=== PATIENT | female | born 1935 | race Caucasian/White ===

== ENCOUNTER 2016-08-02 15:27 | Emergency (ER) | payer OTHER ==
[~2016-08-02] VITALS: Ht 157.5 cm; Wt 86.8 kg
[~2016-08-02 15:27] MED LIST: CLOBETASOL PROP50 ML TP; CRESTOR10 MG PO; Colace PO; DESYREL12.5 MG PO; JANUVIA100 MG PO; NAVANE5 MG PO; NEXIUM40 MG PO; PERCOCET 5/31 TABLET PO; PREDNISONE20 MG PO; PROTONIX40 MG PO; STOOL SOFTENER1 EAC2 PO; TRAZODONE HCL50 MG PO; TYLENOL REGULA325 MG PO; ZOCOR40 MG PO; [UNRECOGNIZED DRUG - OTHER] PO
[2016-08-02 18:15] LABS: HEMATOCRIT 36.5 % (36.0-46.0); MCH 29.8 PG (29.0-34.0); MCHC 32.1 G/DL (30.0-36.0); MCV 92.9 FL (83-99); MEAN PLAT.VOLUME 9.6 uM^3 (9.5-12.4); PLATELET COUNT 306 K/uL (156-360); RBC DIS.WIDTH-CV 14.7 % (11.8-14.6); RBC DIS.WIDTH-SD 47.9 % (39-53); RED BLOOD COUNT 3.93 M/uL (3.80-5.20); WHITE BLOOD COUNT 14.4 K/uL (4.1-10.2)
[2016-08-02 18:30] LABS: CHLORIDE 107 mEq/L (99-109); POTASSIUM 3.8 mEq/L (3.7-5.4); SODIUM 141 mEq/L (136-147)
[2016-08-02 18:32] LABS: GLUCOSE 129 mg/dL (70-99)
[2016-08-02 18:33] LABS: ANION GAP 11 MEQ/L (2-14)
[2016-08-02 18:34] LABS: TOTAL BILIRUBIN 0.2 mg/dL (0.0-1.0)
[2016-08-02 18:36] LABS: ALKALINE PHOSPHATASE 89 IU/L (3-129); GFR ESTIMATE (CALCULATED) 57 mL/min/
[2016-08-02 18:37] LABS: UREA NITROGEN (BUN) 13 mg/dL (9-23)
[2016-08-02 18:40] LABS: TROP-I INTERPRETATION NEGATIVE; TROPONIN-I < 0.01 ng/mL (0.0-0.30)
[2016-08-02 19:03] LABS: ADD MIUA? YES; BILIRUBIN NEGATIVE; BLOOD TRACE; COLOR YELLOW ((YELLOW)); GLUCOSE (STRIP) NEGATIVE; KETONES NEGATIVE; LEUKOCYTES TRACE; NITRITE NEGATIVE; PH, URINE 6.5 (5-8); PROTEIN (STRIP) NEGATIVE; SPECIFIC GRAVITY 1.013 (1.000-1.030); UROBILINOGEN 0.2 MG/DL (0.2-1.0)
[2016-08-02 19:29] LABS: POINT-OF-CARE METER ID UU13113800
[2016-08-02 19:35] LABS: BACTERIA RARE; CASTS NONE SEEN /LPF; CRYSTALS NONE SEEN; EPITHELIAL CELLS NONE SEEN; MUCUS NONE SEEN; RED BLOOD CELLS 0-5 /HPF (0-5); UCUL ADDED? NO; WHITE BLOOD CELLS 0-5 /HPF (0-5)
[2016-08-02] MEDS ORDERED: ZOFRAN4 MG PO (20:51)
[2016-08-02 21:11] VITALS: BP 172/89
== END 2016-08-02 21:12 | disposition home or self-care (01) ==
LOC: EME 15:27
PROVIDERS: Physician Assistant
DX: R10.13 Epigastric pain (principal); R31.9 Hematuria, unspecified; E11.9 Type 2 diabetes mellitus without complications; E78.5 Hyperlipidemia, unspecified; K21.9 Gastro-esophageal reflux disease without esophagitis; M35.3 Polymyalgia rheumatica; C90.00 Multiple myeloma not having achieved remission; Z85.830 Personal history of malignant neoplasm of bone; Z85.42 Personal history of malignant neoplasm of other parts of uterus; Z87.891 Personal history of nicotine dependence
CPT/HCPCS: 80053; 81003; 82948; 84484; 85027; 93005; 99281; 99285; J2405

== ENCOUNTER 2016-08-06 10:08 | Emergency (ER) | payer OTHER ==
[~2016-08-06] VITALS: Ht 157.5 cm; Wt 84.3 kg
[~2016-08-06 10:08] MED LIST changes: +ZOFRAN4 MG PO
[2016-08-06 11:09] LABS: EOSINOPHIL (%) 0 % (0-5); HEMATOCRIT 40.4 % (36.0-46.0); IMMATURE GRANULOCYTE (%) 0.3 % (0.0-0.7); IMMATURE GRANULOCYTE COUNT 0.6 K/uL; LYMPHOCYTE COUNT 0.7 K/uL (1.0-2.8); MCH 29.8 PG (29.0-34.0); MCHC 32.4 G/DL (30.0-36.0); MONOCYTE (%) 4.2 % (3-12); MONOCYTE COUNT 0.8 K/uL (0-0.8); NEUTROPHIL (%) 91.6 % (45-76); NEUTROPHIL COUNT 17.2 K/uL (1.8-6.4); PLATELET COUNT 235 K/uL (156-360); RBC DIS.WIDTH-CV 15.2 % (11.8-14.6); RBC DIS.WIDTH-SD 49.7 % (39-53); RED BLOOD COUNT 4.39 M/uL (3.80-5.20); WHITE BLOOD COUNT 18.8 K/uL (4.1-10.2)
[2016-08-06] MEDS ORDERED: NEXIUM20 MG PO (11:10)
[2016-08-06] MEDS ORDERED: ZOCOR40 MG PO (11:10)
[2016-08-06] MEDS ORDERED: TRADJENTA5 MG PO (11:10)
[2016-08-06] MEDS ORDERED: VITAMIN D31000 UNI2 PO (11:11)
[2016-08-06] MEDS ORDERED: VITAMIN B122500 MCG PO (11:11)
[2016-08-06] MEDS ORDERED: PREDNISONE1 MG PO (11:12)
[2016-08-06 11:16] LABS: CHLORIDE 102 mEq/L (99-109); POTASSIUM 3.5 mEq/L (3.7-5.4); SODIUM 139 mEq/L (136-147)
[2016-08-06 11:17] LABS: INTER. NORMALIZED RATIO 1.2; PROTHROMBIN TIME 12.5 (9.2-11.2); PTT 29.6 (25-32)
[2016-08-06 11:18] LABS: GLUCOSE 164 mg/dL (70-99)
[2016-08-06 11:19] LABS: ANION GAP 16 MEQ/L (2-14)
[2016-08-06 11:21] LABS: ALKALINE PHOSPHATASE 89 IU/L (3-129)
[2016-08-06 11:23] LABS: UREA NITROGEN (BUN) 16 mg/dL (9-23)
[2016-08-06 11:28] LABS: GFR ESTIMATE (CALCULATED) 33 mL/min/; TOTAL BILIRUBIN 0.4 mg/dL (0.0-1.0); TROP-I INTERPRETATION NEGATIVE; TROPONIN-I 0.14 ng/mL (0.0-0.30)
[2016-08-06 11:30] LABS: CK-MB 5.4 ng/mL (0.0-4.9)
[2016-08-06 11:35] LABS: BASE EXCESS -1.1 mEq/L (-3 to +3); BICARBONATE 22.4 mEq/L (22-26); CARBOXY HGB 1.4 % (0-5); METHEMOGLOBIN 0.9 % (0-1.5); PCO2 33 mm Hg (35-45); PO2 64 mm Hg (80-100); pH 7.44 (7.35-7.45)
[2016-08-06 11:36] LABS: COMMENTS - BLOOD GASES C+; DEVICE NASAL CANNULA; O2 FLOW 6 L/MIN; SITE LB; TOTAL RESP RATE 26 resp/min
[2016-08-06 12:10] LABS: TOTAL CK 1260 IU/L (1-294)
[2016-08-06 12:15] LABS: CREATINE KINASE 1260 IU/L (1-294)
[2016-08-06] MEDS ORDERED: ESOMEPRAZOLE MA20 MG PO (12:43)
[2016-08-06] MEDS ORDERED: B-121000 MC2 PO (12:44)
[2016-08-06] MEDS ORDERED: SERTRALINE HCL50 MG PO (12:45)
[2016-08-06] MEDS ORDERED: PREDNISONE5 MG PO (12:45)
[2016-08-06] MEDS ORDERED: RESTASIS 01 DROP/0.4 BOTH EYES (12:45)
[2016-08-06 18:23] LABS: POINT-OF-CARE METER ID UU13113747
[2016-08-06 18:50] LABS: BASE EXCESS -2.4 mEq/L (-3 to +3); BICARBONATE 21.6 mEq/L (22-26); CARBOXY HGB 1.2 % (0-5); COMMENTS - BLOOD GASES C+; DEVICE NRBM; FI02 100 %; METHEMOGLOBIN 1.1 % (0-1.5); PCO2 34 mm Hg (35-45); PO2 93 mm Hg (80-100); SITE LB; pH 7.41 (7.35-7.45)
[2016-08-06 18:51] LABS: TOTAL RESP RATE 34 resp/min
[2016-08-06 19:24] LABS: TROP-I INTERPRETATION NEGATIVE; TROPONIN-I 0.17 ng/mL (0.0-0.30)
[2016-08-06 23:04] VITALS: BP 68/39
== END 2016-08-07 01:09 ==
LOC: EME 10:08 → EDOF 12:36 → EME 12:36 → EDOF 17:15
PROVIDERS: Emergency Medicine; Hospitalist; Internal Medicine
DX: I63.9 Cerebral infarction, unspecified (principal); J18.9 Pneumonia, unspecified organism; J96.01 Acute respiratory failure with hypoxia; M62.82 Rhabdomyolysis; A41.9 Sepsis, unspecified organism; R65.20 Severe sepsis without septic shock; N17.9 Acute kidney failure, unspecified; E87.6 Hypokalemia; Z66 Do not resuscitate; E78.5 Hyperlipidemia, unspecified; E11.9 Type 2 diabetes mellitus without complications; Z85.42 Personal history of malignant neoplasm of other parts of uterus; Z85.830 Personal history of malignant neoplasm of bone; Z88.2 Allergy status to sulfonamides; Z88.6 Allergy status to analgesic agent
CPT/HCPCS: 36600; 70450; 70551; 71010; 80048; 80053; 80202; 82550; 82553; 82803; 82948; 83605; 83880; 84484; 85025; 85610; 85730; 87040; 87070; 87205; 87449; 87493; 87502; 87506; 92526 GN; 93005; 93880; 94640; 94640 76; 94799; 99202; 99281; 99285; G8996 GN CK; G8997 GN CI; J0456; J0696; J1644; J1815; J1940; J2270; J3370; J7030; J7050